=== PATIENT | male | born 1965 | race Two or more races ===

== ENCOUNTER → 2016-09-19 | Outpatient (CLI) | payer OTHER ==
--- NOTE | ~2016-09-19 | US115 ---
[facility] A Service of [facility] & [facility] RADIOLOGY TEXT RESULTS PATIENT: SARA TOSCANO LOCATION: [facility] : [birth year] UNIT #: [id number] AGE: [address]: TIKI MICHAEL APRN SEX: M ORDER DR: [id number] [facility] [address] [place], [place] [address] [id number] O MR#: [id number] Acc #: [id number] NAME: SARA TOSCANO : 1965 SEX: M STUDY DATE/TIME: 09/19/2016 13:25 UNIT: [facility] ROOM: STUDY DESCRIPTION: US Scrotum and Contents Attending Physician: Sonja Michael M.D. Referring Physician: Sonja Michael M.D. Ordering Physician: Sonja Michael M.D. Primary Care Physician: Sonja Michael M.D. MEDICAL IMAGING REPORT This report is preliminary unless electronic signature is present EXAM Testicular ultrasound 09/19/2016 INDICATIONS Pain and swelling in the left testicle for 2 years in a 50-year-old male. Burden-scale, color Doppler and spectral analysis of the testicles was performed bilaterally. COMPARISON STUDIES There are no comparisons. FINDINGS The right testicle measures 3.1 x 2.1 x 3.9 cm, on the left 2.8 x 1.7 x 3.9 cm. Both testicles demonstrate good flow at the time of the study. No evidence of orchitis or epididymitis. No evidence of intratesticular mass. There is a small amount of fluid adjacent to the right testicle. Incidental probable small left varicocele. Incidental cyst intimately associated with the posterior peripheral margin of the testicle. This may represent a tunica vaginalis cyst. IMPRESSION 1. Essentially negative testicular ultrasound. Both testicles demonstrate good flow at the time of the study. There is no evidence of testicular mass, orchitis or epididymitis. 2. Incidental small right-sided hydrocele and small left-sided varicocele. 3. Benign appearing tunical vaginalis cyst on the left measures about 3 mm. Dictated by... Mynor Orellana M.D. [facility] A Service of [facility] RADIOLOGY TEXT RESULTS PATIENT: SARA TOSCANO LOCATION: COUNTS INCLUDE [facility] BEDS AT THE [facility] #: [id number] : 69 UNIT #: [id number] AGE: [address]: TIKI MICHAEL APRN SEX: M ORDER DR: THIS IS AN ELECTRONICALLY VERIFIED REPORT Mynor Orellana M.D. at 09/19/2016 7:08 PM Aubree TD: 09/19/2016 15:53 JOB #: [id number] MEDICAL IMAGING REPORT Page 1 of 1 COPY
== END | disposition home or self-care (01) ==
LOC: CGUS 12:58
DX: N50.812 Left testicular pain (principal); N50.89 Other specified disorders of the male genital organs
CPT/HCPCS: 76870; 93976